=== PATIENT | male | born 1980 ===

== ENCOUNTER → 2023-03-17 10:00 | Outpatient (CLI) | payer OTHER, SELFPAY ==
--- NOTE | 2023-03-17 10:05 | DI.RAD.S_ITS ---
PROCEDURE: XR LUMBAR SPINE 2-3V INDICATIONS: low back pain, neck pain TECHNIQUE: 2 views of the lumbar spine were acquired. COMPARISON: None. FINDINGS: Bones: 6 [id number] vertebrae are present. There appears to be transitional anatomy with vertebral bodies are labeled 1 through 5. There is multilevel trace retrolisthesis. No vertebral body compression fractures. Possible pars defect at L5, not well seen. Disc and foraminal narrowing are present. Soft tissues: Overlying bowel gas pattern is normal. No suspicious soft tissue calcifications. IMPRESSION: Possible pars defect as above. Oblique views may be obtained as clinically indicated for further evaluation. Dictated by: Abigail Bear M.D. on 03/17/2023 at 10:43 Approved by: Abigail Bear M.D. on 03/17/2023 at 12:19
--- NOTE | 2023-03-17 10:05 | DI.RAD.S_ITS ---
PROCEDURE: XR CERVICAL SPINE 2V OR 3V INDICATIONS: low back pain, neck pain TECHNIQUE: 3 view(s) of the cervical spine were acquired. COMPARISON: None. FINDINGS: Bones: No fractures or dislocations to the C7-T1 level. The lateral masses of C1 appear intact on the odontoid view. No suspicious bony lesions. Multilevel trace retrolisthesis. Refer Soft tissues: No prevertebral soft tissue swelling. IMPRESSION: Multilevel trace retrolisthesis. Dictated by: Abigail Bear M.D. on 03/17/2023 at 12:19 Approved by: Abigail Bear M.D. on 03/17/2023 at 12:21
== END ==
PROVIDERS: Referring Provider Internal Medicine Cardiovascular Disease; Visit Provider Internal Medicine Cardiovascular Disease
DX: M54.2 Cervicalgia (principal); M54.50 Low back pain, unspecified
CPT/HCPCS: 72040; 72100